=== PATIENT | female | born 1940 | race Caucasian/White ===

== ENCOUNTER 2024-08-03 16:40 | Inpatient (IN) ==
[2024-08-03] MEDS: 0.9 % SODIUM CHLORIDE 1,000 ML IV ONE ×2 (17:48→20:32)
[2024-08-03] MEDS: ACETAMINOPHEN 1,000 MG/100 ML BAG IV ONE (17:49)
[2024-08-03 18:01] LABS: Basophils # (Auto) 0.01 K/mcL (0.00-0.30); Basophils % (Auto) 0.1 % (0.0-2.0); Eosinophils # (Auto) 0 K/mcL (0.00-0.70); Eosinophils % (Auto) 0 % (0.0-7.0); Hematocrit 40.2 % (34.1-44.9); Hemoglobin 12.7 g/dL (11.2-15.7); Lymphocytes # (Auto) 0.56 K/mcL (1.50-4.80); Lymphocytes % (Auto) 3.2 % (15.5-49.0); Mean Cell Volume 87.8 fL (80.0-100.0); Mean Corpuscular HGB Conc 31.6 g/dL (31.0-36.0); Mean Platelet Volume 10.5 fL (8.8-12.5); Monocytes # (Auto) 1.11 K/mcL (0.10-0.90); Monocytes % (Auto) 6.3 % (1.0-12.0); Neutrophils % (Auto) 89.9 % (38.0-78.0); Platelet Count 262 K/mcL (140-440); RBC 4.58 M/mcL (3.59-5.38); Red Cell Distribution Width 15.4 % (11.5-14.5); WBC 17.7 K/mcL (4.5-11.0)
[2024-08-03] MEDS: CEFEPIME 2 GM VIAL IV ONE (18:15)
[2024-08-03 18:22] LABS: ALT/SGPT 10 U/L (<40); AST/SGOT 14 U/L (<32); Albumin 3.5 gm/dL (3.2-5.2); Albumin/Globulin Ratio 1.1 (1.0-2.3); Alkaline Phosphatase 131 U/L (39-117); Bilirubin,Total 0.5 mg/dL (0.1-1.0); Blood Urea Nitrogen 65 mg/dL (8-23); Calcium 9.8 mg/dL (8.6-10.4); Carbon Dioxide 23 mmol/L (22-30); Chloride 93 mmol/L (96-108); Globulin 3.3 gm/dL (2.2-3.7); Glomerular Filtration Rate 14; Glucose 347 mg/dL (70-105); Potassium 4.6 mmol/L (3.3-5.1); Sodium 131 mmol/L (133-145)
[2024-08-03] MEDS: VANCOMYCIN 1,500 MG in 0.9 % SODIUM CHLORIDE 500 ML IV ONE (19:27)
[2024-08-03 20:07] LABS: Appearance,Urine Cloudy (Clear); Bacteria,Urine Few /hpf (0); Bilirubin,Urine Negative (Negative); Color,Urine Yellow; Glucose,Urine (UA) 500 mg/dL (Negative); Ketones,Urine Negative (Negative); Leukocyte Esterase,Urine Negative /uL (Negative); Nitrate,Urine Negative (Negative); PH,Urine 5.5 (5.0-9.0); Protein,Urine 100 mg/dL (Negative); Urine Blood Small ery/mcL (Negative); Urine RBC 2 /hpf (0-3); Urine Squamous Epithelial Cell 8 /hpf (0-4); Urine WBC 3 /hpf (0-4); Urobilinogen,Urine Normal
[2024-08-03] MEDS: VANCOMYCIN PER PHARMACY IV ONE (22:12)
[2024-08-03] MEDS ORDERED: DEXTROSE 50% 50 ML VIAL IV PRN (23:33)
[2024-08-03] MEDS ORDERED: IPRATROPIUM/ALBUTEROL 3 ML AMPUL.NEB NEB PRN (23:33)
[2024-08-03] MEDS ORDERED: ONDANSETRON 4 MG/2 ML VIAL IV PRN (23:33)
[2024-08-03] MEDS ORDERED: DEXTROSE 31 GM ORAL.SUSP PO PRN (23:33)
[2024-08-04] MEDS: LACTATED RINGERS 1,000 ML IV SCH (00:09)
[2024-08-04] MEDS: DOXYCYCLINE 100 MG in DEXTROSE 5% IN WATER 100 ML IV SCH (00:32)
[2024-08-04] MEDS: MELATONIN 3 MG TABLET PO SCH (00:32)
[2024-08-04] MEDS: MELATONIN 3 MG TABLET PO ONE (00:37)
[2024-08-04] MEDS: ACETAMINOPHEN 325 MG TABLET PO PRN (03:29)
[2024-08-04] MEDS: ACETAMINOPHEN 325 MG TABLET PO ONE (03:57)
[2024-08-04] MEDS: 0.9 % SODIUM CHLORIDE 10 ML SYRINGE IV SCH (05:29)
[2024-08-04 05:55] LABS: Basophils # (Auto) 0.01 K/mcL (0.00-0.30); Basophils % (Auto) 0.1 % (0.0-2.0); Eosinophils # (Auto) 0.02 K/mcL (0.00-0.70); Eosinophils % (Auto) 0.1 % (0.0-7.0); Hematocrit 38.8 % (34.1-44.9); Hemoglobin 11.9 g/dL (11.2-15.7); Lymphocytes # (Auto) 0.77 K/mcL (1.50-4.80); Lymphocytes % (Auto) 4.9 % (15.5-49.0); Mean Cell Volume 90.2 fL (80.0-100.0); Mean Corpuscular HGB Conc 30.7 g/dL (31.0-36.0); Mean Platelet Volume 11.1 fL (8.8-12.5); Monocytes # (Auto) 1.08 K/mcL (0.10-0.90); Monocytes % (Auto) 6.9 % (1.0-12.0); Neutrophils % (Auto) 87.7 % (38.0-78.0); Platelet Count 217 K/mcL (140-440); Red Cell Distribution Width 15.7 % (11.5-14.5); WBC 15.7 K/mcL (4.5-11.0)
[2024-08-04] MEDS: INSULIN LISPRO 1 UNIT/0.01 ML UNIT SQ SCH (08:03)
[2024-08-04 08:07] LABS: ALT/SGPT 9 U/L (<40); AST/SGOT 15 U/L (<32); Albumin/Globulin Ratio 0.9 (1.0-2.3); Alkaline Phosphatase 119 U/L (39-117); Bilirubin,Direct 0.2 mg/dL (<0.3); Bilirubin,Total 0.5 mg/dL (0.1-1.0); Blood Urea Nitrogen 59 mg/dL (8-23); Calcium 9.9 mg/dL (8.6-10.4); Carbon Dioxide 17 mmol/L (22-30); Chloride 101 mmol/L (96-108); Globulin 3.3 gm/dL (2.2-3.7); Glomerular Filtration Rate 16; Glucose 223 mg/dL (70-105); Lactate Dehydrogenase 173 U/L (135-225); Phosphorous 4.1 mg/dL (2.5-4.5); Potassium 4.5 mmol/L (3.3-5.1); Sodium 136 mmol/L (133-145); Triglycerides 95 mg/dL (<150); Uric Acid 4.6 mg/dL (2.5-8.0)
[2024-08-04 08:56] LABS: Vancomycin,Random 18.6 ug/mL
[2024-08-04] MEDS: ATORVASTATIN 40 MG TABLET PO SCH (09:04)
[2024-08-04] MEDS: traMADol 50 MG TABLET PO PRN (09:04)
[2024-08-04] MEDS: METOPROLOL SUCCINATE 25 MG TAB.XL.24H PO SCH (09:04)
[2024-08-04] MEDS: INSULIN GLARGINE, HUMAN 1 UNIT/0.01 ML SQ SCH (09:04)
[2024-08-04] MEDS: HEPARIN 5,000 UNIT/ML VIAL SQ SCH (09:04)
[2024-08-04] MEDS: ASPIRIN 81 MG TAB.CHEW PO SCH (09:04)
[2024-08-04] MEDS: PANTOPRAZOLE 40 MG TABLET PO SCH (09:04)
[2024-08-04] MEDS: CEFEPIME 1 GM VIAL IV SCH (09:04)
[2024-08-04] MEDS ORDERED: VANCOMYCIN PER PHARMACY IV SCH (09:30)
[2024-08-04] MEDS ORDERED: LIDOCAINE W/EPI 1% 20 ML VIAL IJ ONE (12:12)
[2024-08-04] MEDS: SENNOSIDES 1 TABLET PO PRN (20:57)
[2024-08-04] MEDS: POLYETHYLENE GLYCOL 3350 17 GM PACKET PO PRN (20:57)
[2024-08-05 06:01] LABS: Basophils # (Auto) 0.01 K/mcL (0.00-0.30); Basophils % (Auto) 0.1 % (0.0-2.0); Eosinophils # (Auto) 0.02 K/mcL (0.00-0.70); Eosinophils % (Auto) 0.2 % (0.0-7.0); Hematocrit 38.4 % (34.1-44.9); Hemoglobin 10.8 g/dL (11.2-15.7); Lymphocytes # (Auto) 0.74 K/mcL (1.50-4.80); Lymphocytes % (Auto) 7.3 % (15.5-49.0); Mean Corpuscular HGB Conc 28.1 g/dL (31.0-36.0); Mean Platelet Volume 10.3 fL (8.8-12.5); Monocytes # (Auto) 0.97 K/mcL (0.10-0.90); Monocytes % (Auto) 9.6 % (1.0-12.0); Neutrophils % (Auto) 82.5 % (38.0-78.0); Platelet Count 237 K/mcL (140-440); RBC 3.88 M/mcL (3.59-5.38); Red Cell Distribution Width 16.3 % (11.5-14.5); WBC 10.1 K/mcL (4.5-11.0)
[2024-08-05 07:14] LABS: Vancomycin,Random 11.4 ug/mL
[2024-08-05 08:45] LABS: ALT/SGPT 11 U/L (<40); AST/SGOT 16 U/L (<32); Albumin 2.5 gm/dL (3.2-5.2); Albumin/Globulin Ratio 0.8 (1.0-2.3); Alkaline Phosphatase 102 U/L (39-117); Bilirubin,Direct 0.2 mg/dL (<0.3); Bilirubin,Total 0.4 mg/dL (0.1-1.0); Blood Urea Nitrogen 47 mg/dL (8-23); Calcium 10.4 mg/dL (8.6-10.4); Carbon Dioxide 17 mmol/L (22-30); Chloride 104 mmol/L (96-108); Globulin 3.3 gm/dL (2.2-3.7); Glomerular Filtration Rate 21; Glucose 182 mg/dL (70-105); Lactate Dehydrogenase 113 U/L (135-225); Phosphorous 2.9 mg/dL (2.5-4.5); Potassium 4.4 mmol/L (3.3-5.1); Sodium 135 mmol/L (133-145); Triglycerides 109 mg/dL (<150); Uric Acid 4.1 mg/dL (2.5-8.0)
[2024-08-05] MEDS: VANCOMYCIN 1,000 MG in 0.9 % SODIUM CHLORIDE 250 ML IV ONE (09:19)
[2024-08-05] MEDS: SODIUM BICARBONATE 650 MG TABLET PO SCH (10:14)
[2024-08-05] MEDS: LACTATED RINGERS 1,000 ML IV SCH (10:53)
[2024-08-06 06:23] LABS: Basophils # (Auto) 0.01 K/mcL (0.00-0.30); Basophils % (Auto) 0.2 % (0.0-2.0); Hematocrit 34.4 % (34.1-44.9); Hemoglobin 10.2 g/dL (11.2-15.7); Lymphocytes # (Auto) 0.95 K/mcL (1.50-4.80); Lymphocytes % (Auto) 14.5 % (15.5-49.0); Mean Cell Volume 91.2 fL (80.0-100.0); Mean Corpuscular HGB Conc 29.7 g/dL (31.0-36.0); Mean Platelet Volume 10.6 fL (8.8-12.5); Monocytes # (Auto) 0.73 K/mcL (0.10-0.90); Monocytes % (Auto) 11.1 % (1.0-12.0); Neutrophils % (Auto) 70.9 % (38.0-78.0); Platelet Count 254 K/mcL (140-440); RBC 3.77 M/mcL (3.59-5.38); WBC 6.6 K/mcL (4.5-11.0)
[2024-08-06 06:35] LABS: ALT/SGPT 10 U/L (<40); AST/SGOT 16 U/L (<32); Albumin 2.3 gm/dL (3.2-5.2); Albumin/Globulin Ratio 0.8 (1.0-2.3); Alkaline Phosphatase 108 U/L (39-117); Bilirubin,Direct < 0.2 mg/dL (0-0.3); Bilirubin,Total 0.2 mg/dL (0.1-1.0); Blood Urea Nitrogen 43 mg/dL (8-23); Carbon Dioxide 20 mmol/L (22-30); Chloride 104 mmol/L (96-108); Glomerular Filtration Rate 24; Glucose 177 mg/dL (70-105); Lactate Dehydrogenase 90 U/L (135-225); Phosphorous 2.6 mg/dL (2.5-4.5); Potassium 4.4 mmol/L (3.3-5.1); Sodium 136 mmol/L (133-145); Triglycerides 133 mg/dL (<150); Uric Acid 3.6 mg/dL (2.5-8.0)
[2024-08-06 07:26] LABS: Vancomycin,Random 15.2 ug/mL
[2024-08-06] MEDS: VANCOMYCIN 1,000 MG in 0.9 % SODIUM CHLORIDE 250 ML IV SCH (10:45)
[2024-08-06] MEDS: LACTATED RINGERS 1,000 ML IV SCH (11:55)
[2024-08-07] MEDS ORDERED: PNEUMOCOCCAL 23-VAL P-SAC VAC 0.5 ML SYRINGE IM ONE (10:00)
== END 2024-08-06 17:49 | disposition short-term general hospital (02) | DRG 856 ==
LOC: ED 16:40 → MEDSUR 23:32
PROVIDERS: ADMIT Student in an Organized Health Care Education/Training Program; ATTEND Student in an Organized Health Care Education/Training Program